=== PATIENT | male | born 1955 ===

== ENCOUNTER 2024-08-27 21:10 | Emergency (ER) | payer MEDICARE ==
[~2024-08-27] VITALS: Ht 167.6 cm; Wt 86.2 kg
[2024-08-27 21:36] LABS: BASOPHILS ABSOLUTE AUTO 0.02 K/mm3 (0.00-0.23); BASOPHILS PERCENT AUTO 0 % (0-2); EOSINOPHILS ABSOLUTE AUTO 0.33 K/mm3 (0.00-0.68); EOSINOPHILS PERCENT AUTO 7 % (0-6); Hematocrit 23.9 % (37.0-53.0); Hemoglobin 7.9 g/dL (13.5-17.5); IMMATURE GRAN ABSOLUTE AUTO 0.01 K/mm3 (0.00-0.10); IMMATURE GRAN PERCENT AUTO 0 % (0-1); LYMPHOCYTES ABSOLUTE AUTO 0.64 K/mm3 (0.84-5.20); LYMPHOCYTES PERCENT AUTO 13 % (21-46); MONOCYTES ABSOLUTE AUTO 0.63 K/mm3 (0.16-1.47); MONOCYTES PERCENT AUTO 13 % (4-13); Mean Corpuscular HGB Conc 33.1 g/dL (31.5-36.5); Mean Corpuscular Volume 97 fL (80-100); Mean Platelet Volume 9.5 fL (9.1-12.4); NEUTROPHILS ABSOLUTE AUTO 3.38 K/mm3 (1.96-9.15); NEUTROPHILS PERCENT AUTO 67 % (41-73); Platelet Count 270 K/mm3 (150-400); RDW Coefficient Variation 15.4 % (11.7-14.2); RDW Standard Deviation 53.8 fL (35.1-46.3); Red Blood Cell Count 2.47 M/mm3 (4.30-5.90); White Blood Cell Count 5.01 K/mm3 (4.00-11.30)
[2024-08-27 22:02] LABS: Bilirubin, Total 0.4 mg/dL (0.1-1.0); Bun/Creatinine Ratio 2.8 (12.0-20.0); Calcium, Blood 8.8 mg/dL (8.5-10.1); Creatinine, Blood 7.39 mg/dL (0.60-1.20); Globulin, Blood 3.1 g/dL (2.2-4.0); Potassium, Blood 4.2 mmol/L (3.5-5.5); Total Protein, Blood 6.1 g/dL (6.4-8.2)
[2024-08-27] MEDS ORDERED: Morphine Sulfate 4 MG/1 ML Injection IV ONE (23:40)
== END 2024-08-28 00:37 | disposition home or self-care (01) ==
LOC: ER 21:10
PROVIDERS: Student in an Organized Health Care Education/Training Program
DX: R07.89 Other chest pain (principal); M79.89 Other specified soft tissue disorders; I12.0 Hypertensive chronic kidney disease with stage 5 chronic kidney disease or end stage renal disease; N18.6 End stage renal disease; Z86.73 Personal history of transient ischemic attack (TIA), and cerebral infarction without residual deficits; Z99.2 Dependence on renal dialysis
CPT/HCPCS: 71045; 80053; 84484; 85025; 93005; 93010; 93971; 96374; 99285-25; J2270

== ENCOUNTER 2024-10-02 08:27 | Observation (INO) | payer MEDICARE ==
[~2024-10-02] VITALS: Ht 170.2 cm; Wt 62.0 kg
[2024-10-02] VITALS (14 sets, daily range): BP systolic 138–181; BP diastolic 57–75
[2024-10-02 09:10] LABS: BASOPHILS PERCENT AUTO 0 % (0-2); EOSINOPHILS ABSOLUTE AUTO 0.24 K/mm3 (0.00-0.68); EOSINOPHILS PERCENT AUTO 7 % (0-6); Hematocrit 19.4 % (37.0-53.0); Hemoglobin 6.6 g/dL (13.5-17.5); IMMATURE GRAN ABSOLUTE AUTO 0.01 K/mm3 (0.00-0.10); IMMATURE GRAN PERCENT AUTO 0 % (0-1); LYMPHOCYTES ABSOLUTE AUTO 0.33 K/mm3 (0.84-5.20); LYMPHOCYTES PERCENT AUTO 9 % (21-46); MONOCYTES ABSOLUTE AUTO 0.37 K/mm3 (0.16-1.47); MONOCYTES PERCENT AUTO 10 % (4-13); Mean Corpuscular HGB 30.7 pg (26.0-34.0); Mean Corpuscular Volume 90 fL (80-100); Mean Platelet Volume 9.2 fL (9.1-12.4); NEUTROPHILS ABSOLUTE AUTO 2.66 K/mm3 (1.96-9.15); NEUTROPHILS PERCENT AUTO 74 % (41-73); Platelet Count 176 K/mm3 (150-400); RDW Coefficient Variation 12.9 % (11.7-14.2); Red Blood Cell Count 2.15 M/mm3 (4.30-5.90); White Blood Cell Count 3.61 K/mm3 (4.00-11.30)
[2024-10-02 09:32] LABS: Albumin/Globulin Ratio 0.9 (0.8-1.8); Bilirubin, Total 0.5 mg/dL (0.1-1.0); Bun/Creatinine Ratio 3.2 (12.0-20.0); Creatinine, Blood 7.22 mg/dL (0.60-1.20); Globulin, Blood 3.4 g/dL (2.2-4.0); Potassium, Blood 3.5 mmol/L (3.5-5.5); Total Protein, Blood 6.4 g/dL (6.4-8.2)
[2024-10-02] MEDS ORDERED: FentaNYL Citrate 50 MCG/ML 2 ML Injection IV ONE ×2 (09:40→10:35)
[2024-10-02 09:54] LABS: RETIC HGB EQUIVALENT 33.6 pg (28.20-36.60); RETICULOCYTE ABSOLUTE 0.0386 M/mm3 (0.0200-0.1100); RETICULOCYTE COUNT PERCENT 1.84 % (0.50-2.50)
[2024-10-02] MEDS ORDERED: OxyCODONE HCL 5 MG TAB PO ONE (10:00)
[2024-10-02] MEDS ORDERED: NS 1,000 ML IV ONE (11:57)
[2024-10-02] MEDS ORDERED: NITR.4SL SL (13:04)
[2024-10-02] MEDS ORDERED: HYDR100 PO (13:04)
[2024-10-02] MEDS ORDERED: CARV25 PO (13:04)
[2024-10-02] MEDS ORDERED: AMLO10 PO (13:04)
[2024-10-02] MEDS ORDERED: MIDO5 PO (13:05)
[2024-10-02] MEDS ORDERED: OxyCODONE 5 mg/Acetamin 325 mg TABLET PO PRN (15:55)
[2024-10-02] MEDS ORDERED: Darbepoetin Alfa in Polysorbat 25 MCG/0.42 ML Syringe SC SCH (16:00)
[2024-10-02] MEDS ORDERED: DiphenhydrAMINE HCL 25 MG Cap PO STA (16:12)
[2024-10-02 16:27] LABS: Percent Saturation 38.6 % (20.0-50.0)
[2024-10-02 16:51] LABS: Hematocrit 25.1 % (37.0-53.0); Hemoglobin 8.9 g/dL (13.5-17.5)
[2024-10-02] MEDS ORDERED: DiphenhydrAMINE HCL 25 MG Cap PO PRN (17:00)
[2024-10-02] MEDS ORDERED: DiphenhydrAMINE HCl 50 MG/ML 1ML Vial IV ONE (20:25)
[2024-10-02] MEDS ORDERED: Melatonin 5 MG Tablet PO PRN (21:55)
[2024-10-03] VITALS (18 sets, daily range): BP systolic 129–208; BP diastolic 56–85
--- NOTE | 2024-10-03 00:43 | NUR ---
LATE ENTRY 0730 REPORT RECIEVED PT CAME UP WHILE 2ND UNIT PRBC WAS INFUSING. PT C/O ITCHING AND PAIN AT IV SITE DISCUSSED WITH HOSPITALIST IV BENADRYL GIVEN AND PRBCS DECREASED TO 125 ML/HR PT REPORTED THIS RELIVED ITCHING AND PAIN AT IV SITE. PT REPORTS PAIN WHILE TURNING IN L SHOULDER AND L HIP. PT HAS EDEMA NOTED IN L HAND AND LLE. DENIES NEED FOR PAIN MEDS AT THIS TIME.
--- NOTE | 2024-10-03 05:10 | NUR ---
PT HAS NOT SLEPT T/O THE NIGHT, HE REPORTS ITCHING HAS BEEN RELEIVED DURING THIS SHIFT. PT C/O PAIN ON LEFT SIDE PAIN MEDICATION GIVEN. PT REPORTED FEELING LIKE HE NEEDED TO URINATE BLADDER SCNA DOEN SHOWING 59 ML OF URINE. PT IS ALERT TO SELF ONLY AND CONFUSED. PT REDIRECTABLE BUT FORGETFUL AT TIMES. EDEMA NOTED TO LUE AND LLE. PT IS FLACCID TO LEFT SIDE. PT HAS BEEN REPOSITIONED EVERY 2 HOURS. PT HAS NO DIFFICULTY WITH SWOLLOWING.
--- NOTE | 2024-10-03 05:25 | NUR ---
STAFF HAVE CONTACTED SEVERAL TIMES WITH REQUEST FOR MEDICATIONS. STILL HAVE NOT RECIEVED MEDICATION LIST.
[2024-10-03 06:06] LABS: Mean Corpuscular HGB 30.2 pg (26.0-34.0); Mean Corpuscular HGB Conc 34.5 g/dL (31.5-36.5); Mean Corpuscular Volume 88 fL (80-100); Platelet Count 180 K/mm3 (150-400); RDW Coefficient Variation 13.8 % (11.7-14.2); RDW Standard Deviation 44.3 fL (35.1-46.3); Red Blood Cell Count 3.31 M/mm3 (4.30-5.90); White Blood Cell Count 4.32 K/mm3 (4.00-11.30)
[2024-10-03 06:59] LABS: Albumin, Blood 3.2 g/dL (3.4-5.0); Anion Gap 9 mmol/L (3-11); Blood Urea Nitrogen 15 mg/dL (8-24); Bun/Creatinine Ratio 2.6 (12.0-20.0); CO2, Blood 31 mmol/L (21-32); Chloride, Blood 97 mmol/L (98-108); Creatinine, Blood 5.84 mg/dL (0.60-1.20); Glomerular Filtration Rate 10 (60-); Glucose, Blood 81 mg/dL (70-99); Magnesium, Blood 2.1 mg/dL (1.6-2.4); Phosphorus, Blood 2.7 mg/dL (2.5-4.9); Potassium, Blood 3.9 mmol/L (3.5-5.5); Sodium, Blood 133 mmol/L (136-145)
[2024-10-03] MEDS ORDERED: ACET325 PO (08:49)
[2024-10-03] MEDS ORDERED: Polyethylene Glycol 3350 17 gm PO SCH (09:00)
[2024-10-03] MEDS ORDERED: Aspir 8181 MG PO (09:26)
[2024-10-03] MEDS ORDERED: ATOR40TA PO (09:27)
[2024-10-03] MEDS ORDERED: Calcium Carbon500 MG PO (09:28)
[2024-10-03] MEDS ORDERED: BISA10S PR (09:29)
[2024-10-03] MEDS ORDERED: IPRAT-ALBUT 0.5-3 ML INH (09:32)
[2024-10-03] MEDS ORDERED: MELA3 PO (09:38)
[2024-10-03] MEDS ORDERED: MIRALAX17 GM PO (09:39)
[2024-10-03] MEDS ORDERED: NEPHRO VITAMIN0.8 MG PO (09:40)
[2024-10-03] MEDS ORDERED: SENNA LAXATIVE8.6 MG PO (09:41)
[2024-10-03] MEDS ORDERED: SEVEC800 PO (09:41)
[2024-10-03] MEDS ORDERED: ONDA4 PO (09:42)
[2024-10-03] MEDS ORDERED: SERT25 PO (09:43)
[2024-10-03] MEDS ORDERED: SIME80CH PO (09:43)
[2024-10-03] MEDS ORDERED: SODCHL1 PO (09:45)
[2024-10-03] MEDS ORDERED: TRAM50 PO (09:46)
[2024-10-03] MEDS ORDERED: TRAZ50 PO (09:46)
[2024-10-03] MEDS ORDERED: Ondansetron 4 MG TAB PO PRN (11:30)
[2024-10-03] MEDS ORDERED: Sennosides 8.6 MG Tab PO PRN (11:30)
[2024-10-03] MEDS ORDERED: Calcium Carbonate 500 MG Tab Chew PO PRN (11:30)
[2024-10-03] MEDS ORDERED: Bisacodyl 10 MG Supp PR PRN (11:30)
[2024-10-03] MEDS ORDERED: Midodrine 5 MG Tab PO PRN (11:35)
[2024-10-03] MEDS ORDERED: Nitroglycerin 0.4 MG SUBL SL PRN (11:35)
[2024-10-03] MEDS ORDERED: Simethicone 80 MG Chew PO PRN (11:35)
[2024-10-03] MEDS ORDERED: Acetaminophen 325 MG TABLET PO PRN (11:35)
[2024-10-03] MEDS ORDERED: TraMADol HCl 50 MG Tab PO PRN (11:40)
[2024-10-03] MEDS ORDERED: Ipratropium/Albuterol SulF 2.5-0.5MG/3 ML Amp INH PRN (11:40)
[2024-10-03] MEDS ORDERED: Sevelamer Carbonate 800 MG Tab PO SCH (12:30)
[2024-10-03] MEDS ORDERED: HydrALAZINE HCl 50 MG Tab PO SCH (14:00)
[2024-10-03] MEDS ORDERED: OXYCODONE-ACET1 EAC3 PO (14:59)
[2024-10-03] MEDS ORDERED: Carvedilol 25 MG Tab PO SCH (17:00)
--- NOTE | 2024-10-03 18:19 | NUR ---
SHIFT SUMMARY- PT ALERT AND ORIENTED TO SELF. HE IS HYPER FIXATED ON HIS BOWELS. HE HAS CALLED VERY FREQUENTLY, EVERY TIME HE SEES A STAFF MEMBER HE TELLS THEM "I POOPED." HIS ATTENDS HAVE BEEN CHECKED T/O THE SHIFT, AND DRY ATTENDS WERE CHANGED TO TRY TO PLACATE THE ISSUE. THE PT WAS EVALUATED BY PHYSICAL THERAPY, CT WAS COMPLETED OF THE LEFT ARM, THE PT HAD DIALYSIS WITH 3L OFF TODAY. PLAN IS FOR DC TOMORROW MORNING RIDE ARRANGED FOR 0800. PT IS IN BED AT THIS TIME, NO S&S OF DISTRESS NOTED.
[2024-10-03] MEDS ORDERED: TraZODone HCl 50 MG Tab PO SCH (21:00)
[2024-10-03] MEDS ORDERED: Atorvastatin 40 MG Tab PO SCH (21:00)
[2024-10-04 00:34] VITALS: BP 148/70
[2024-10-04 02:51] VITALS: BP 136/76
--- NOTE | 2024-10-04 04:17 | NUR ---
SHIFT SUMMARY ADMITTED FOR ANEMIA. FULL CODE. [facility]. HE IS A&O X2, HYPERFIXATES ON BM'S. CALLS FREQUENTLY REGARDING BM'S. TELEMETRY: NSR @ 73 BPM. HD PATIENT, HE RECEIVED HD ON PREVIOUS SHIFT. LEFT ARM FISTULA. LIFT PATIENT. RENAL DIET. LEFT ARM IS EDEMATOUS. HX OF A CVA 2 1/2 MONTHS AGO. HE RECEIVED PRBC'S ON ADMIT FOR ANEMIA. DR. MACKEY IS RENAL CONSULT. ON RA.
[2024-10-04] MEDS ORDERED: Vitamin B Cmplx/Vit C/Folic Ac 1 Tab PO SCH (06:00)
[2024-10-04 06:36] LABS: Hematocrit 30.8 % (37.0-53.0); Hemoglobin 10.6 g/dL (13.5-17.5)
[2024-10-04 07:18] LABS: Albumin, Blood 3.2 g/dL (3.4-5.0); Anion Gap 11 mmol/L (3-11); Blood Urea Nitrogen 16 mg/dL (8-24); Bun/Creatinine Ratio 2.8 (12.0-20.0); CO2, Blood 31 mmol/L (21-32); Calcium, Blood 9.1 mg/dL (8.5-10.1); Chloride, Blood 94 mmol/L (98-108); Creatinine, Blood 5.73 mg/dL (0.60-1.20); Glomerular Filtration Rate 10 (60-); Glucose, Blood 94 mg/dL (70-99); Magnesium, Blood 2.1 mg/dL (1.6-2.4); Potassium, Blood 3.6 mmol/L (3.5-5.5); Sodium, Blood 132 mmol/L (136-145)
[2024-10-04 07:34] VITALS: BP 166/89
--- NOTE | 2024-10-04 08:47 | NUR ---
DISCHARGE PT A&OX2, OFFERED BREAKFAST (PT ATE A FEW BITES OF YOGURT & SOME FRUIT ONLY) AM MEDS GIVEN, IV REMOVED, CALLED REPORT TO [facility] NURSE WHO STATED THE RESIDENT HAS BEEN 10 DAYS NO BM. PT BELIEVED HE HAD BEEN HAVING LIQUID STOOLS FOR WHOLE HOSPITALIZATION (EVEN REPORTED THAT TO DR MACKEY THIS AM), NO BM'S THIS VISIT. TRANSFERED VIA GURNEY TO WHEELCHAIR, DISCHARGED @ 0835 VIA MEDICAL TRANSPORT.
[2024-10-04] MEDS ORDERED: AmLODIPine Besylate 5 MG Tab PO SCH (09:00)
[2024-10-04] MEDS ORDERED: Sertraline HCl 50 MG Tab PO SCH (09:00)
[2024-10-04] MEDS ORDERED: Aspirin 81 MG TabEC PO SCH (09:00)
== END 2024-10-04 08:45 ==
LOC: ER 08:27 → MEDS 08:28
PROVIDERS: Emergency Medicine; Internal Medicine Nephrology; ADMIT Internal Medicine
DX: I12.0 Hypertensive chronic kidney disease with stage 5 chronic kidney disease or end stage renal disease (principal); N18.6 End stage renal disease; D63.1 Anemia in chronic kidney disease; R60.0 Localized edema; R07.89 Other chest pain; E87.1 Hypo-osmolality and hyponatremia; I69.354 Hemiplegia and hemiparesis following cerebral infarction affecting left non-dominant side; E87.70 Fluid overload, unspecified; J90 Pleural effusion, not elsewhere classified; Z99.2 Dependence on renal dialysis
CPT/HCPCS: 36415; 36430; 71045; 71275; 73200; 80053; 80069; 82607; 82728; 82746; 83540; 83550; 83735; 84484; 85014; 85018; 85025; 85027; 85045; 86850; 86900; 86901; 86923; 93005; 93010; 94760; 96372; 96374-59; 96375; 96376-59; 97162; 97530; 99285-25; A9270; G0257; G0378; J0881; J1200; J3010; J7030; P9016; Q9967

== ENCOUNTER 2024-10-25 20:14 | Emergency (ER) | payer MEDICARE ==
[~2024-10-25] VITALS: Ht 170.2 cm; Wt 78.0 kg
[~2024-10-25 20:14] MED LIST: ACET325 PO; AMLO10 PO; ATOR40TA PO; Aspir 8181 MG PO; BISA10S PR; CARV25 PO; Calcium Carbon500 MG PO; HYDR100 PO; IPRAT-ALBUT 0.5-3 ML INH; MELA3 PO; MIDO5 PO; MIRALAX17 GM PO; NEPHRO VITAMIN0.8 MG PO; NITR.4SL SL; ONDA4 PO; OXYCODONE-ACET1 EAC3 PO; SENNA LAXATIVE8.6 MG PO; SERT25 PO; SEVEC800 PO; SIME80CH PO; SODCHL1 PO; TRAM50 PO; TRAZ50 PO
[2024-10-25 20:56] LABS: BASOPHILS ABSOLUTE AUTO 0.02 K/mm3 (0.00-0.23); BASOPHILS PERCENT AUTO 0 % (0-2); EOSINOPHILS ABSOLUTE AUTO 0.25 K/mm3 (0.00-0.68); EOSINOPHILS PERCENT AUTO 5 % (0-6); Hematocrit 24.2 % (37.0-53.0); IMMATURE GRAN ABSOLUTE AUTO 0.02 K/mm3 (0.00-0.10); IMMATURE GRAN PERCENT AUTO 0 % (0-1); LYMPHOCYTES ABSOLUTE AUTO 0.72 K/mm3 (0.84-5.20); LYMPHOCYTES PERCENT AUTO 14 % (21-46); MONOCYTES ABSOLUTE AUTO 0.75 K/mm3 (0.16-1.47); MONOCYTES PERCENT AUTO 15 % (4-13); Mean Corpuscular HGB 30.7 pg (26.0-34.0); Mean Corpuscular HGB Conc 33.1 g/dL (31.5-36.5); Mean Corpuscular Volume 93 fL (80-100); Mean Platelet Volume 9.7 fL (9.1-12.4); NEUTROPHILS ABSOLUTE AUTO 3.38 K/mm3 (1.96-9.15); NEUTROPHILS PERCENT AUTO 66 % (41-73); Platelet Count 221 K/mm3 (150-400); RDW Coefficient Variation 13.8 % (11.7-14.2); RDW Standard Deviation 46.4 fL (35.1-46.3); Red Blood Cell Count 2.61 M/mm3 (4.30-5.90); White Blood Cell Count 5.14 K/mm3 (4.00-11.30)
[2024-10-25 21:16] LABS: Albumin, Blood 2.9 g/dL (3.4-5.0); Albumin/Globulin Ratio 0.9 (0.8-1.8); Bilirubin, Total 0.6 mg/dL (0.1-1.0); Bun/Creatinine Ratio 4.7 (12.0-20.0); Calcium, Blood 9.6 mg/dL (8.5-10.1); Creatinine, Blood 5.11 mg/dL (0.60-1.20); Globulin, Blood 3.1 g/dL (2.2-4.0); Potassium, Blood 3.4 mmol/L (3.5-5.5)
== END 2024-10-26 05:07 | disposition home or self-care (01) ==
LOC: ER 20:14
PROVIDERS: Student in an Organized Health Care Education/Training Program
DX: R07.9 Chest pain, unspecified (principal); I12.0 Hypertensive chronic kidney disease with stage 5 chronic kidney disease or end stage renal disease; N18.6 End stage renal disease; I69.954 Hemiplegia and hemiparesis following unspecified cerebrovascular disease affecting left non-dominant side; Z79.82 Long term (current) use of aspirin; Z79.899 Other long term (current) drug therapy
CPT/HCPCS: 71046; 80053; 84484; 85025; 93005; 93010; 93971; 99285-25

== ENCOUNTER 2025-01-19 13:12 | Emergency (ER) | payer MEDICARE ==
[~2025-01-19] VITALS: Ht 170.2 cm; Wt 57.6 kg
[2025-01-19] MEDS ORDERED: Lidocaine 4% 1 Patch TOP ONE (13:25)
[2025-01-19] MEDS ORDERED: HYDROcodone 5-APAP 325 TAB PO ONE (13:45)
== END 2025-01-19 15:20 | disposition home or self-care (01) ==
LOC: ER 13:12
DX: M25.559 Pain in unspecified hip (principal); G89.29 Other chronic pain; I12.0 Hypertensive chronic kidney disease with stage 5 chronic kidney disease or end stage renal disease; N18.6 End stage renal disease; Z91.148 Patient's other noncompliance with medication regimen for other reason; Z86.73 Personal history of transient ischemic attack (TIA), and cerebral infarction without residual deficits; Z79.899 Other long term (current) drug therapy; Z79.82 Long term (current) use of aspirin
CPT/HCPCS: 99283; A9270

== ENCOUNTER 2025-04-02 11:26 | Inpatient (IN) | payer MEDICARE, OTHER ==
[~2025-04-02] VITALS: Ht 172.7 cm; Wt 54.4 kg
[2025-04-02 12:05] LABS: BASOPHILS ABSOLUTE AUTO 0.02 K/mm3 (0.00-0.23); BASOPHILS PERCENT AUTO 0 % (0-2); EOSINOPHILS ABSOLUTE AUTO 0.14 K/mm3 (0.00-0.68); EOSINOPHILS PERCENT AUTO 3 % (0-6); Hematocrit 38.5 % (37.0-53.0); Hemoglobin 13.1 g/dL (13.5-17.5); IMMATURE GRAN ABSOLUTE AUTO 0.02 K/mm3 (0.00-0.10); IMMATURE GRAN PERCENT AUTO 0 % (0-1); LYMPHOCYTES ABSOLUTE AUTO 0.75 K/mm3 (0.84-5.20); LYMPHOCYTES PERCENT AUTO 16 % (21-46); MONOCYTES ABSOLUTE AUTO 0.52 K/mm3 (0.16-1.47); MONOCYTES PERCENT AUTO 11 % (4-13); Mean Corpuscular HGB Conc 34.0 g/dL (31.5-36.5); Mean Corpuscular Volume 90 fL (80-100); NEUTROPHILS ABSOLUTE AUTO 3.26 K/mm3 (1.96-9.15); NEUTROPHILS PERCENT AUTO 69 % (41-73); NRBC ABSOLUTE 0.00 K/mm3 (0.00-0.02); NRBC Auto 0.0 /100 WBC (0.0-0.2); Platelet Count 175 K/mm3 (150-400); RDW Coefficient Variation 13.9 % (11.7-14.2); RDW Standard Deviation 45.3 fL (35.1-46.3)
[2025-04-02 12:32] LABS: Alanine Aminotransfer (ALT/SGP 13.0 U/L (12-78); Albumin, Blood 3.0 g/dL (3.4-5.0); Albumin/Globulin Ratio 0.7 (0.8-1.8); Anion Gap 10.0 mmol/L (3-11); Aspartate Aminotrans (AST/SGOT 16.0 U/L (12-37); Bilirubin, Total 0.6 mg/dL (0.1-1.0); Blood Urea Nitrogen 36.0 mg/dL (8-24); CO2, Blood 33.0 mmol/L (21-32); Calcium, Blood 9.8 mg/dL (8.5-10.1); Chloride, Blood 93.0 mmol/L (98-108); Creatinine, Blood 4.82 mg/dL (0.60-1.20); Globulin, Blood 4.1 g/dL (2.2-4.0); Glucose, Blood 93.0 mg/dL (70-99); Potassium, Blood 4.0 mmol/L (3.5-5.5); Sodium, Blood 132.0 mmol/L (136-145); Total Protein, Blood 7.1 g/dL (6.4-8.2)
[2025-04-02] MEDS ORDERED: FLU VACC TS2025(65UP)/MF59C/PF 45 MCG/0.5 ML SYRINGE IM SCH (14:10)
[2025-04-02] MEDS ORDERED: Heparin Sodium,Porcine 5,000 UNIT/0.5 ML SDV SC SCH (16:00)
[2025-04-02 17:32] VITALS: BP 221/98
[2025-04-02 17:45] VITALS: BP 220/92
[2025-04-02] MEDS ORDERED: HydrALAZINE HCl 20 MG / ML 1ML Vial IV PRN (17:50)
[2025-04-02] MEDS ORDERED: HYDR100 PO (18:24)
[2025-04-02] MEDS ORDERED: SENN187 PO (18:31)
[2025-04-02] MEDS ORDERED: [UNRECOGNIZED DRUG - OTHER] TOP (18:31)
[2025-04-02] MEDS ORDERED: BACL10 PO (18:32)
[2025-04-02] MEDS ORDERED: LORA.5 PO (18:32)
[2025-04-02] MEDS ORDERED: [UNRECOGNIZED DRUG - OTHER] (18:34)
[2025-04-02] MEDS ORDERED: Fleet Enema132 ML PR (18:36)
[2025-04-02] MEDS ORDERED: LOKELMA10 GM PO (18:36)
[2025-04-02] MEDS ORDERED: LEVE500 PO (18:37)
--- NOTE | 2025-04-02 19:14 | NUR ---
PT ADMITTED TO UNIT AT APPROX 1730. USING SLIDE SHEET PT TRANSFERED FROM [facility] TO HOSPITAL BED. ADMISSION COMPLETED WELL MED REC USING HOSPITAL RECORDS AND CHART PROVIDED BY ELISABET BARNES. TELE APPLIED - SR @ 83. BP ELEVATED UPON ARRIVAL - 220/92, CONTACTED DR. HOANG WHO ORDERED HYDRALAZINE Q4H PRN FOR SBP ABOVE 160, MEDICATION ADMINISTERED. VIKTOR ALSO NOTIFIED OF STAGE II PRESSURE INJURY NOTED TO LEFT ANKLE. RN TOOK PHOTOS AND PLACED IN CHART, WOUND ALSO CLEANSED AND FOAM DRESSING APPLIED. PT ABLE TO EAT AND DRINK WATER c STRAW WITH ASSISTANCE AND NO S/SX OF ASPIRATION. MEDICATIONS ADMINISTERED c APPLESAUCE W/O DIFFICULTY. COPY OF POLST IN PT CHART. BED ALARM ON DUE TO PT COGNITIVE IMPAIRMENT. SEE ADMISSION ASSESSMENT FOR HEAD-TO-TOE. RN INQUIRED IF PROVIDER WOULD LIKE Q4H NEURO CHECKS, PROVIDER DENIED AT THIS TIME. PT CURRENTLY RESTING IN BED WITH BED IN LOWEST POSITION AND CALL LIGHT WITHIN REACH. RN INFORMED PT OF NO SMOKING/IGNITION POLICY HOWEVER UNSURE IF PT RETAINED INFORMATION.
[2025-04-02 19:35] VITALS: BP 217/86
[2025-04-02 19:51] VITALS: BP 225/107
[2025-04-02] MEDS ORDERED: Labetalol HCL 5 MG/ML 4ML Injection (Single Dose) IV PRN (20:50)
[2025-04-02 23:55] VITALS: BP 205/93
[2025-04-03] VITALS (18 sets, daily range): BP systolic 149–230; BP diastolic 65–120
[2025-04-03] MEDS ORDERED: FentaNYL Citrate 50 MCG/ML 2 ML Injection IV PRN (01:25)
[2025-04-03 05:47] LABS: Hematocrit 33.5 % (37.0-53.0); Hemoglobin 11.4 g/dL (13.5-17.5); Mean Corpuscular HGB Conc 34.0 g/dL (31.5-36.5); Mean Corpuscular Volume 89 fL (80-100); NRBC ABSOLUTE 0.00 K/mm3 (0.00-0.02); NRBC Auto 0.0 /100 WBC (0.0-0.2); Platelet Count 179 K/mm3 (150-400); RDW Coefficient Variation 13.8 % (11.7-14.2); RDW Standard Deviation 44.9 fL (35.1-46.3)
[2025-04-03 06:49] LABS: Anion Gap 11 mmol/L (3-11); Blood Urea Nitrogen 50 mg/dL (8-24); CHOL/HDL RATIO 3.4; CO2, Blood 30 mmol/L (21-32); Calcium, Blood 9.8 mg/dL (8.5-10.1); Chloride, Blood 94 mmol/L (98-108); Cholesterol 114 mg/dL (50-200); Creatinine, Blood 5.58 mg/dL (0.60-1.20); Glucose, Blood 92 mg/dL (70-99); HDL Cholesterol 34 mg/dL (>39); LDL/HDL RATIO 1.6; Low Density Lipoprotein Chol 54 mg/dL (0-110); Potassium, Blood 3.6 mmol/L (3.5-5.5); Sodium, Blood 131 mmol/L (136-145); Triglycerides 129 mg/dL (30-160); Very Low Density Lipoprot Chol 25 mg/dL (6-32)
--- NOTE | 2025-04-03 07:44 | NUR ---
PT MAINTAINING ELEVATED BLOOD PRESSURES 180-220 SYSTOLIC THROUGHOUT THE NIGHT MEDICATING WITH HYDRALAZINE FOR SBP>160 AND LABETALOL FOR SBP>220. PT HAS L SIDED WEAKNESS AT BASELINE, ANSWERS "MHMM" AND "UHUH" TO QUESTIONS. UNABLE TO FILL OUT MRI SCREENING D/T LACK OF CONFIDENCE IN ACCURACY OF ANSWERS. NO ACUTE NEUROLOGICAL CHANGES. SMALL BM FIRM BROWN PER RECTUM.
[2025-04-03] MEDS ORDERED: Polyethylene Glycol 3350 17 gm PO PRN (07:55)
[2025-04-03] MEDS ORDERED: Ipratropium/Albuterol SulF 2.5-0.5MG/3 ML Amp INH PRN (08:00)
[2025-04-03] MEDS ORDERED: Darbepoetin (Pharmacy Consult) SC SCH (08:05)
[2025-04-03] MEDS ORDERED: Vitamin B Cmplx/Vit C/Folic Ac 1 Tab PO SCH (09:00)
--- NOTE | 2025-04-03 09:30 | NUR ---
THIS RN CALLED TO BY PLASTERER STUCCO. PER RN, DR. MACKEY NOTIFIED OF ELEVATED BP. DR. MACKEY ORDERED PO CLONIDINE. THIS RN ATTEMPTED TO ADMIN MEDICATION PT UNABLE TO FOLLOW COMMANDS. DR. HOANG NOTIFIED. PER DR. HOANG, REATTEMPT TO GIVE PO MEDICATION NOW. MD WILL ORDER IV MEDICATIONS IF UNABLE TO SWALLOW.
--- NOTE | 2025-04-03 09:56 | NUR ---
PT ABLE TO TAKE CLONIDINE. JERZY MCPHERSON NOTIFIED. WILL CONTINUE TO ASSESS NEED FOR PRNS DURING DIALYSIS
[2025-04-03] MEDS ORDERED: Labetalol HCL 5 MG/ML 4ML Injection (Single Dose) IV ONE (10:00)
[2025-04-03] MEDS ORDERED: Labetalol HCL 5 MG/ML 4ML Injection (Single Dose) IV PRN (10:00)
--- NOTE | 2025-04-03 16:01 | NUR ---
SUMMARY PT DIALIZED THIS SHIFT. MENTATION SOMEWHAT IMPROVED. PER CAREER SERVICES ASSISTANT THAT WAS HERE YESTERDAY, PT IS MORE ALERT AFTER DIALYSIS TODAY. PT UNABLE TO FOLLOW COMMANDS. ANSWERS YES/NO BUT IT IS UNCLEAR THAT HE COMPREHENDS THE QUESTIONS. PT HAS BEEN HYPERTENSIVE, TREATED PER EMAR. MD AWARE. MRI NEGATIVE. PALLIATIVE CONSULT PLACED. PT SISTER HAS AGREED TO DNR STATUS. PALLIATIVE RN TO PLACE UPDATED ORDER. BLOOD CULTURES OBTAINED TODAY DUE TO ELEVATED TEMP IN DIALYSIS.
[2025-04-04 02:54] VITALS: BP 193/80
--- NOTE | 2025-04-04 04:43 | NUR ---
SHIFT SUMMARY: PT AOX1-2 BUT DIFFICULT TO ASSESS. RESPONDS TO NAME AND IS ABLE TO ANSWER YES AND NO QUESTIONS AT TIMES. SOMETIMES PT FULLY NONVERBAL AND JUST STARES AT THIS RN. SOME COMPLAINTS OF PAIN, MEDICATED PER EMR. BP ELEVATED, MEDICATED PER EMR, THOUGH COULD BE DUE TO PT UNABLE TO REMAIN STILL AND FOLLOW COMMANDS. PT TOOK MEDS WELL CRUSHED IN APPLESAUCE. PT IN BED RESTING, BED IN LOWEST POSITION, CALL LIGHT IN REACH. CONTINUING CARE.
[2025-04-04 05:25] VITALS: BP 180/89
[2025-04-04 05:45] VITALS: BP 181/67
[2025-04-04 06:00] LABS: Hematocrit 28.4 % (37.0-53.0); Hemoglobin 9.6 g/dL (13.5-17.5)
[2025-04-04 06:52] LABS: Albumin, Blood 2.8 g/dL (3.4-5.0); Anion Gap 11 mmol/L (3-11); Blood Urea Nitrogen 47 mg/dL (8-24); CO2, Blood 31 mmol/L (21-32); Calcium, Blood 9.1 mg/dL (8.5-10.1); Chloride, Blood 97 mmol/L (98-108); Creatinine, Blood 5.12 mg/dL (0.60-1.20); Glucose, Blood 111 mg/dL (70-99); Magnesium, Blood 2.3 mg/dL (1.6-2.4); Phosphorus, Blood 4.3 mg/dL (2.5-4.9); Potassium, Blood 3.7 mmol/L (3.5-5.5); Sodium, Blood 135 mmol/L (136-145)
[2025-04-04 07:34] VITALS: BP 197/71
[2025-04-04] MEDS ORDERED: NS 250 ML IV PRN (10:15)
[2025-04-04 11:45] VITALS: BP 181/61
[2025-04-04] MEDS ORDERED: CATAPRES0.1 MG PO (13:42)
[2025-04-04] MEDS ORDERED: METSALMENC TOP (13:43)
[2025-04-04] MEDS ORDERED: LOSA25 PO (13:43)
--- NOTE | 2025-04-04 17:34 | NUR ---
DISCHARGE NOTE PT D/C HOME TO [facility] AT 1425. PT MENTATION AT BASELINE, TOLERATING SOME PO, VOIDING, AND DENIED PAIN. BELONGINGS WERE RETURNED. HARD SCRIPT PLACED IN DISCHARGE PACKET. DISCHARGE PACKET GIVEN TO TRANSPORT. [place] DUVAL GAVE REPORT TO [place] REED FROM . PT ESCOURTED OUT VIA GURNEY BY TRANSPORT.
== END 2025-04-04 14:25 | DRG 682 ==
LOC: ER 11:26 → MEDS 11:27
PROVIDERS: Emergency Medicine; Internal Medicine Nephrology; ADMIT Internal Medicine
PROC: 5A1D70Z Performance of Urinary Filtration, Intermittent, Less than 6 Hours Per Day (ICD-10-PCS; principal; 2025-04-03)
DX: I12.0 Hypertensive chronic kidney disease with stage 5 chronic kidney disease or end stage renal disease (principal); N18.6 End stage renal disease; I69.354 Hemiplegia and hemiparesis following cerebral infarction affecting left non-dominant side; E87.1 Hypo-osmolality and hyponatremia; I16.0 Hypertensive urgency; E87.70 Fluid overload, unspecified; R60.0 Localized edema; D63.1 Anemia in chronic kidney disease; Z99.2 Dependence on renal dialysis; Z88.8 Allergy status to other drugs, medicaments and biological substances; Z79.82 Long term (current) use of aspirin
CPT/HCPCS: 36415; 36416; 70450; 70551; 80048; 80053; 80061; 80069; 83735; 85014; 85018; 85025; 85027; 93005; 93010; 94760; 96372; 96374; 96375; 96376; 99285-25; A9270; G0378; J0360; J1644; J1953; J3010; J7050

== ENCOUNTER 2025-04-05 20:02 | Emergency (ER) | payer MEDICARE, OTHER ==
[~2025-04-05] VITALS: Ht 157.5 cm; Wt 52.4 kg
[~2025-04-05 20:02] MED LIST changes: +BACL10 PO; +CATAPRES0.1 MG PO; +Fleet Enema132 ML PR; +LEVE500 PO; +LOKELMA10 GM PO; +LORA.5 PO; +LOSA25 PO; +METSALMENC TOP; +SENN187 PO; +[UNRECOGNIZED DRUG - OTHER]; +[UNRECOGNIZED DRUG - OTHER] TOP
[2025-04-05 20:42] LABS: BASOPHILS ABSOLUTE AUTO 0.02 K/mm3 (0.00-0.23); BASOPHILS PERCENT AUTO 0 % (0-2); EOSINOPHILS ABSOLUTE AUTO 0.16 K/mm3 (0.00-0.68); EOSINOPHILS PERCENT AUTO 4 % (0-6); Hematocrit 37.7 % (37.0-53.0); Hemoglobin 12.7 g/dL (13.5-17.5); IMMATURE GRAN ABSOLUTE AUTO 0.01 K/mm3 (0.00-0.10); IMMATURE GRAN PERCENT AUTO 0 % (0-1); LYMPHOCYTES ABSOLUTE AUTO 0.71 K/mm3 (0.84-5.20); LYMPHOCYTES PERCENT AUTO 16 % (21-46); MONOCYTES ABSOLUTE AUTO 0.37 K/mm3 (0.16-1.47); MONOCYTES PERCENT AUTO 8 % (4-13); Mean Corpuscular HGB Conc 33.7 g/dL (31.5-36.5); Mean Corpuscular Volume 92 fL (80-100); NEUTROPHILS ABSOLUTE AUTO 3.28 K/mm3 (1.96-9.15); NEUTROPHILS PERCENT AUTO 72 % (41-73); NRBC ABSOLUTE 0.00 K/mm3 (0.00-0.02); NRBC Auto 0.0 /100 WBC (0.0-0.2); Platelet Count 187 K/mm3 (150-400); RDW Coefficient Variation 13.4 % (11.7-14.2); RDW Standard Deviation 45.1 fL (35.1-46.3)
[2025-04-05 21:01] LABS: Alanine Aminotransfer (ALT/SGP 16.0 U/L (12-78); Albumin, Blood 3.4 g/dL (3.4-5.0); Albumin/Globulin Ratio 0.8 (0.8-1.8); Anion Gap 7.0 mmol/L (3-11); Aspartate Aminotrans (AST/SGOT 17.0 U/L (12-37); Bilirubin, Total 0.5 mg/dL (0.1-1.0); Blood Urea Nitrogen 20.0 mg/dL (8-24); CO2, Blood 34.0 mmol/L (21-32); Calcium, Blood 9.5 mg/dL (8.5-10.1); Chloride, Blood 98.0 mmol/L (98-108); Creatinine, Blood 2.91 mg/dL (0.60-1.20); Globulin, Blood 4.4 g/dL (2.2-4.0); Glucose, Blood 86.0 mg/dL (70-99); Potassium, Blood 3.3 mmol/L (3.5-5.5); Sodium, Blood 136.0 mmol/L (136-145); Total Protein, Blood 7.8 g/dL (6.4-8.2)
== END 2025-04-05 23:05 | disposition home or self-care (01) ==
LOC: ER 20:02
PROVIDERS: Emergency Medicine
DX: I69.959 Hemiplegia and hemiparesis following unspecified cerebrovascular disease affecting unspecified side (principal); I12.0 Hypertensive chronic kidney disease with stage 5 chronic kidney disease or end stage renal disease; N18.6 End stage renal disease; Z99.2 Dependence on renal dialysis; Z79.82 Long term (current) use of aspirin; Z79.899 Other long term (current) drug therapy
CPT/HCPCS: 70450; 80053; 85025; 93005; 93010; 99285-25

== ENCOUNTER 2025-04-07 12:07 | Emergency (ER) | payer MEDICARE, OTHER ==
[~2025-04-07] VITALS: Ht 167.6 cm; Wt 63.5 kg
[2025-04-07 12:47] LABS: BASOPHILS ABSOLUTE AUTO 0.02 K/mm3 (0.00-0.23); BASOPHILS PERCENT AUTO 0 % (0-2); EOSINOPHILS ABSOLUTE AUTO 0.17 K/mm3 (0.00-0.68); EOSINOPHILS PERCENT AUTO 4 % (0-6); Hematocrit 28.7 % (37.0-53.0); Hemoglobin 9.7 g/dL (13.5-17.5); IMMATURE GRAN ABSOLUTE AUTO 0.01 K/mm3 (0.00-0.10); IMMATURE GRAN PERCENT AUTO 0 % (0-1); LYMPHOCYTES ABSOLUTE AUTO 0.71 K/mm3 (0.84-5.20); LYMPHOCYTES PERCENT AUTO 15 % (21-46); MONOCYTES ABSOLUTE AUTO 0.71 K/mm3 (0.16-1.47); MONOCYTES PERCENT AUTO 15 % (4-13); Mean Corpuscular HGB Conc 33.8 g/dL (31.5-36.5); Mean Corpuscular Volume 93 fL (80-100); NEUTROPHILS ABSOLUTE AUTO 3.26 K/mm3 (1.96-9.15); NEUTROPHILS PERCENT AUTO 67 % (41-73); NRBC ABSOLUTE 0.00 K/mm3 (0.00-0.02); NRBC Auto 0.0 /100 WBC (0.0-0.2); Platelet Count 159 K/mm3 (150-400); RDW Coefficient Variation 13.2 % (11.7-14.2); RDW Standard Deviation 44.4 fL (35.1-46.3)
[2025-04-07 13:12] LABS: Anion Gap 11.0 mmol/L (3-11); Blood Urea Nitrogen 58.0 mg/dL (8-24); CO2, Blood 30.0 mmol/L (21-32); Calcium, Blood 8.8 mg/dL (8.5-10.1); Chloride, Blood 97.0 mmol/L (98-108); Creatinine, Blood 5.26 mg/dL (0.60-1.20); Glucose, Blood 168.0 mg/dL (70-99); Potassium, Blood 3.7 mmol/L (3.5-5.5); Sodium, Blood 134.0 mmol/L (136-145)
== END 2025-04-07 17:55 | disposition home or self-care (01) ==
LOC: ER 12:07
PROVIDERS: Family Medicine
DX: I63.9 Cerebral infarction, unspecified (principal); G81.94 Hemiplegia, unspecified affecting left nondominant side; N18.6 End stage renal disease; Z99.2 Dependence on renal dialysis
CPT/HCPCS: 70450; 80048; 85025; 99285-25